=== PATIENT | female | born 1955 | race Caucasian/White ===

== ENCOUNTER → 2024-01-09 09:19 | Outpatient (REF) | payer OTHER, SELFPAY ==
[2024-01-09 11:37] LABS: Urine Albumin Negative (Neg - Trace); Urine Bilirubin Negative (Negative); Urine Character Clear (Clear); Urine Color Yellow; Urine Glucose Negative (Negative); Urine Ketone Negative (Negative); Urine Leukocyte Negative (Negative); Urine Nitrite Negative (Negative); Urine Occult Blood Negative (Negative); Urine Specific Gravity 1.005 (<1.030); Urine Urobilinogen Negative (Neg - 1+)
[2024-01-09 11:50] LABS: ALT (SGPT) 15 U/L (0-35); AST (SGOT) 22 U/L (14-36); Albumin 3.7 g/dl (3.5-5.0); Alkaline Phosphatase 68 U/L (38-126); Blood Urea Nitrogen 11 mg/dl (7-17); Carbon Dioxide 31 mmol/L (22-30); Chloride 100 mmol/L (98-107); Glucose 101 mg/dl (70-99); Sodium 136 mmol/L (135-145); Total Bilirubin 0.9 mg/dl (0.2-1.3); Total Cholesterol 224 mg/dl (50-199); Total Protein 6.4 g/dl (6.3-8.2); Triglyceride 106 mg/dl (10-149); Very Low Density Lipoprotein 21 mg/dl (0-30); eGFR > 60.00
[2024-01-09 12:00] LABS: HDL Cholesterol 118 mg/dl; LDL Cholesterol, Calculated 85 mg/dl
[2024-01-09 12:05] LABS: Vitamin D, 25-OH*** 33.4 ng/mL (30-80)
[2024-01-09 12:09] LABS: Glycohemoglobin (HgbA1c) 6.3 % (4.0-5.6)
[2024-01-09 12:13] LABS: % Basophils 0.7 % (0-2); % Eosinophils 1.1 % (0-6); % Immature Granulocytes 0.5 % (0-0.5); % Lymphocytes 42.8 % (20.5-51.1); % Monocytes 8.1 % (1.7-9.3); % Neutrophils 46.8 % (42.2-75.2); Absolute Eosinophils 0.1 10^3/uL (0-0.7); Absolute Lymphocytes 2.4 10^3/uL (1.2-3.4); Absolute Monocytes 0.5 10^3/uL (0.1-0.6); Absolute Neutrophils 2.6 10^3/uL (1.4-6.5); Hematocrit 36.5 % (37.0-47.0); Mean Corp Hgb Conc. 32.9 g/dL (33.0-37.0); Mean Corpuscular Hgb 31.2 pg (27.0-31.0); Mean Corpuscular Volume 94.8 fL (81.0-99.0); Mean Platelet Volume 10.2 fL (7.4-10.4); Nucleated Red Blood Cells % 0 %; Platelet Count 255 10^3/uL (130-400); Red Blood Cell Count 3.85 10^6/uL (4.20-5.40); Red Cell Dist. Width 14.6 % (11.5-14.5); White Blood Cell Count 5.6 10^3/uL (4.8-10.8)
[2024-01-09 12:18] LABS: TSH 0.65 uIU/ml (0.47-4.68)
== END ==
LOC: HWLAB 09:19
PROVIDERS: ATTENDING PHYSICIAN Internal Medicine Cardiovascular Disease; FAMILY PHYSICIAN Nurse Practitioner Family
DX: I10 Essential (primary) hypertension (principal); R73.09 Other abnormal glucose; Z13.0 Encounter for screening for diseases of the blood and blood-forming organs and certain disorders involving the immune mechanism; E78.00 Pure hypercholesterolemia, unspecified; E55.9 Vitamin D deficiency, unspecified; R31.1 Benign essential microscopic hematuria
CPT/HCPCS: 36415; 80053; 80061; 81003; 82306; 83036; 84443; 85025

== ENCOUNTER → 2024-02-09 14:44 | Outpatient (REF) | payer OTHER, SELFPAY | LOC: HWWDC 14:44 | PROVIDERS: ATTENDING PHYSICIAN Obstetrics & Gynecology Gynecology; FAMILY PHYSICIAN Nurse Practitioner Family | DX: Z12.31 Encounter for screening mammogram for malignant neoplasm of breast (principal) | CPT/HCPCS: 77063; 77067 ==

== ENCOUNTER → 2024-08-07 08:26 | Outpatient (REF) | payer OTHER, SELFPAY ==
[2024-08-07 10:25] LABS: ALT (SGPT) 17 U/L (0-35); AST (SGOT) 26 U/L (14-36); Alkaline Phosphatase 75 U/L (38-126); Blood Urea Nitrogen 10 mg/dl (7-17); Carbon Dioxide 26 mmol/L (22-30); Chloride 105 mmol/L (98-107); Glucose 90 mg/dl (70-99); Potassium 4.3 mmol/L (3.5-5.1); Sodium 142 mmol/L (135-145); Total Bilirubin 0.7 mg/dl (0.2-1.3); Total Protein 6.2 g/dl (6.3-8.2); eGFR > 60.00
[2024-08-07 11:02] LABS: Glycohemoglobin (HgbA1c) 5.7 % (4.0-5.6)
== END ==
LOC: HWLAB 08:26
PROVIDERS: ATTENDING PHYSICIAN Nurse Practitioner Family
DX: R73.09 Other abnormal glucose (principal)
CPT/HCPCS: 36415; 80053; 83036

== ENCOUNTER → 2024-09-13 06:36 | Outpatient (REF) | payer OTHER, SELFPAY | LOC: MRI 3T 06:36 | PROVIDERS: ATTENDING PHYSICIAN Physician Assistant Surgical; FAMILY PHYSICIAN Nurse Practitioner Family | DX: M54.16 Radiculopathy, lumbar region (principal); M54.50 Low back pain, unspecified; M51.369 Other intervertebral disc degeneration, lumbar region without mention of lumbar back pain or lower extremity pain | CPT/HCPCS: 72148 ==

== ENCOUNTER 2025-01-31 13:12 | Emergency (ER) | payer OTHER, SELFPAY ==
[2025-01-31 13:17] VITALS: BP 159/76
--- NOTE | 2025-01-31 13:47 | ED.GENMED ---
History of Present Illness
General
Chief Complaint: Back Pain
Time Seen by Provider: 01/31/25 13:33
History of Present Illness
History of Present Illness:
TIME OF INITIAL ENCOUNTER: 2 PM
HPI: The patient has a history of left-sided sciatica. More recently the pain has been dramatically worsened. She saw Dr. Post with [facility] recently. She was placed on a Medrol Dosepak recently. She is not currently taking any narcotic pain
medication. Numbness and increased pain to the left lower extremity. She reports having an abnormal MRI from this past August. She denies any bowel or bladder incontinence or retention. She has had no fevers.
EXAM:
GENERAL: The patient appears rather uncomfortable
HEENT: Moist oral mucosa
ABDOMEN: Soft with no peritoneal signs, no tenderness
BACK: Positive straight leg raise at the left lower extremity at 30 degrees, she has fairly good strength in an S1 distribution but is weaker in an L5 distribution, excellent L4, decreased active range of motion of the thoracolumbar spine due to pain
NEUROLOGIC: Excellent strength in the upper extremities and no involvement to the right lower extremity, no coordination deficits, as above, see back exam above for neuroexam of the left lower extremity
PSYCHIATRIC: Appropriate mental status, normal insight and judgement
EXTREMITIES: Nontender, no edema, moves all extremities equally
SKIN: No rash, no lesions
NUMBER AND COMPLEXITY OF PROBLEMS ADDRESSED AT THE ENCOUNTER
� Chronic conditions affecting care: Sciatica, high blood pressure, has had SVT
� Acute Exacerbation and/or Progression of Chronic Illness: This is a subacute problem and acutely worsening problem
� Differential Diagnosis includes: Sciatica, no clinical evidence for cauda equina syndrome, nonspecific low back pain, muscle strain
AMOUNT AND/OR COMPLEXITY OF DATA TO BE REVIEWED AND ANALYZED
� I performed an independent evaluation of and my interpretation is:
EKG: Sinus 53, septal Q waves unchanged from 07/02/2023, no significant change from 07/02/2023
CT:
X-rays:
Laboratory Studies:
Other:
� Review of other/old records: I reviewed the MRI report from August 2024 which showed disc bulge at L5-S1 causing impingement upon the L5 nerve root on the left side
� Clinical information was obtained by an independent historian: I spoke to the at bedside
� Prescriptions/Medications Considered but not given:
� Further testing considered but not performed: MRI not indicated as there is no significant decrease in strength and no back pain 'red flags'
RISK OF COMPLICATIONS AND/OR MORBIDITY OR MORTALITY OF PATIENT MANAGEMENT
� Social determinants of health affecting care: Lives at home
� Discussion with other providers: I notified Dr. Miller, covering for [facility] of the patient's rather severe pain. He does recommend using Medrol Dosepak.
� Escalation of care including admission/observation vs risk of discharge considered: We gave IV narcotic and algesia, IV Toradol, and IV steroids.
ANY OTHER UPDATES:
3 PM: On reassessment, the patient does feel improved however she has developed some 'indigestion'. She has a soft nontender abdomen. Will give a dose of Pepcid. I also recommend that she start a PPI while on the Medrol Dosepak. I have also
given her the contact information for the other [facility] orthopedist that Dr. Miller had mentioned.
3:45 PM: EKG was obtained because patient did have some continued indigestion despite Pepcid. She was also given Maalox.
Past History
Past History
ED Past Medical History: Arrthythmia (SVT, Palpitations) and HTN; Negative Asthma
ED Past Surgical History: Appendectomy, Cholecystectomy, Orthopedic (Right shoulder surgery, Right knee surgery, Left Achilles repair, ) and Other (Cataracts)
Social History
Tobacco: Non-smoker
Alcohol: Occasional
Personal:
Living: with family
Employment: Employed
Family History
Family History: Negative Early CAD
Phy Exam
Physical Exam
Physical Exam:
See HPI
Course
Orders/Labs/Results
Orders:
Orders
01/31/25 13:41
Dexamethasone Sod Phosphate [Decadron] 10 mg IV NOW STA
HYDROmorphone [Dilaudid] 0.5 mg IV NOW STA
Ketorolac [Toradol] 15 mg IV NOW STA
01/31/25 14:00
HYDROmorphone [Dilaudid] 0.5 mg .ROUTE .STK-MED ONE
01/31/25 14:10
HYDROmorphone [Dilaudid] 0.5 mg IV NOW STA
01/31/25 14:41
Famotidine [Pepcid] 20 mg IV NOW STA
01/31/25 15:31
Electrocardiogram (*1) Urgent
Reason for Study: Abdominal Pain
EKG- Treatment ONCE
Mag Hydrox/Al Hydrox/Simeth [Maalox] 30 ml PO NOW STA
Vital Signs
Initial and Last Documented VS:
Initial Vital Signs
Temp Pulse Resp BP Pulse Ox
36.9 C 71 18 159/76 100
01/31/25 13:17 01/31/25 13:17 01/31/25 13:17 01/31/25 13:17 01/31/25 13:17
Last Documented Vital Signs
Temp Pulse Resp BP Pulse Ox
36.6 C 54 18 171/61 99
01/31/25 15:22 01/31/25 15:22 01/31/25 15:22 01/31/25 15:22 01/31/25 15:22
*Critical Care Note
Total Time (30-74mins, 75-104mins- exclusive of procedures): Not Applicable
ED Attending Note
-
Portions of this chart may have been created with voice recognition software.� Occasional wrong word or��sound alike� substitutions may have occurred due to the inherent limitations of voice recognition software.
Discharge Plan
Departure
Patient Disposition: Home (Routine Discharge)
Date of Disposition: 01/31/25
Time of Disposition: 14:43
Patient with high blood pressure during this ER visit?: Yes
Discharge Problem:
Sciatica
Prescriptions:
New
hydrocodone-acetaminophen 5-325 mg tablet
1 - 2 tab PO Q6H PRN (Reason: Pain) Qty: 14 0RF
methylprednisolone [Medrol (Ousmane)] 4 mg tablets,dose pack
See Rx Instructions .ROUTE .COMPLEX Qty: 21 0RF
Rx Instructions:
orally per package directions
No Action
furosemide [Lasix] 20 MG tablet
20 mg PO DAILY PRN (Reason: swelling)
metoprolol succinate 25 MG tablet extended release 24 hr
25 mg PO BID
zolpidem 10 mg tablet
10 mg PO HS PRN (Reason: sleep)
Patient Comments:
06/22/2023: last filled 06/14/23, 30 tabs for 30 days from [facility]
cholecalciferol (vitamin D3) [Vitamin D3] 50 mcg (2,000 unit) Tablet
50 mcg PO DAILY
amlodipine 5 mg Tablet
5 mg PO DAILY Qty: 30 0RF
Referrals:
Tricia Clement CRNP [Family Provider] -
Piyush Jack MD [Non-Admitting Privileges] - Follow up in 2-3 days
Activity Restrictions/Additional Instructions:
I spoke to Dr. Miller, on-call for [facility] but not necessarily in the same division as Dr. Post. Dr. Miller did also mention Dr. Piyush Jack as another name and I have given you his contact information, also with [facility]. I am sending a
prescription for another round of a steroid pack, a narcotic, and I also recommend that you take something like omeprazole to help decrease stomach acid production while on the steroid. This could help with indigestion. You could also take
[id number] Pepcid if indigestion persists. I also recommend taking something like MiraLAX to help prevent constipation while on narcotic pain medication. Try to limit the use of narcotics and only take when pain is severe.
Interventions
Interventions:
*Risk Screen - Suicide Last Done: 01/31/25 13:19
*General Assessment Last Done: 01/31/25 13:19
*Neglect/Abuse Screening Last Done: 01/31/25 13:19
*ED- Fall Risk Assessment Last Done: 01/31/25 14:00
*ED COVID-19 Vaccine History Last Done: 01/31/25 13:39
ED-Musculoskeletal Assessment Last Done: 01/31/25 13:41
Discharge Date and Time
Print Language: NEPALI
[2025-01-31 13:53] VITALS: BP 152/76
[2025-01-31] MEDS: TORADOL 15 MG IV (14:09)
[2025-01-31] MEDS: DECADRON 10 MG IV (14:10)
[2025-01-31] MEDS: DILAUDID 0.5 MG IV (14:11)
[2025-01-31] MEDS: PEPCID 20 MG IV (14:50)
[2025-01-31 15:00] VITALS: BP 173/79
[2025-01-31 15:22] VITALS: BP 171/61
[2025-01-31] MEDS: MAALOX 30 ML PO (15:51)
== END 2025-01-31 16:06 | disposition home or self-care (01) ==
LOC: EMR 13:12
PROVIDERS: EMERGENCY PHYSICIAN Emergency Medicine; FAMILY PHYSICIAN Nurse Practitioner Family
DX: M54.32 Sciatica, left side (principal); K30 Functional dyspepsia; I10 Essential (primary) hypertension; Z90.49 Acquired absence of other specified parts of digestive tract
CPT/HCPCS: 96374; 96375; 99284; 93005

== ENCOUNTER → 2025-04-01 09:33 | Outpatient (REF) | payer OTHER, SELFPAY ==
[2025-04-01 12:02] LABS: % Basophils 0.6 % (0-2); % Eosinophils 1.5 % (0-6); % Immature Granulocytes 0.2 % (0-0.5); % Lymphocytes 47.2 % (20.5-51.1); % Monocytes 7.5 % (1.7-9.3); Absolute Eosinophils 0.1 10^3/uL (0-0.7); Absolute Lymphocytes 2.2 10^3/uL (1.2-3.4); Absolute Monocytes 0.4 10^3/uL (0.1-0.6); Hematocrit 35.1 % (37.0-47.0); Hemoglobin 11.5 g/dL (12.0-16.0); Mean Corp Hgb Conc. 32.8 g/dL (33.0-37.0); Mean Corpuscular Hgb 30.8 pg (27.0-31.0); Mean Corpuscular Volume 94.1 fL (81.0-99.0); Mean Platelet Volume 11.2 fL (7.4-10.4); Nucleated Red Blood Cells % 0 %; Platelet Count 206 10^3/uL (130-400); Red Blood Cell Count 3.73 10^6/uL (4.20-5.40); Red Cell Dist. Width 14.1 % (11.5-14.5); White Blood Cell Count 4.6 10^3/uL (4.8-10.8)
[2025-04-01 12:14] LABS: Urine Albumin Negative (Neg - Trace); Urine Bilirubin Negative (Negative); Urine Character Clear (Clear); Urine Color Yellow; Urine Glucose Negative (Negative); Urine Ketone Negative (Negative); Urine Leukocyte 1+ (Negative); Urine Nitrite Negative (Negative); Urine Occult Blood 1+ (Negative); Urine Specific Gravity 1.015 (<1.030); Urine Urobilinogen Negative (Neg - 1+)
[2025-04-01 12:38] LABS: Urine Bacteria Few (Negative); Urine Red Blood Cell 0-2 /HPF (0-2); Urine White Cell 0-2 /HPF (0-5)
[2025-04-01 12:47] LABS: ALT (SGPT) 12 U/L (0-35); AST (SGOT) 19 U/L (14-36); Alkaline Phosphatase 59 U/L (38-126); Blood Urea Nitrogen 9 mg/dl (7-17); Carbon Dioxide 29 mmol/L (22-30); Chloride 107 mmol/L (98-107); Glucose 91 mg/dl (70-99); HDL Cholesterol 99 mg/dl; LDL Cholesterol, Calculated 83 mg/dl; Potassium 4.2 mmol/L (3.5-5.1); Sodium 139 mmol/L (135-145); Total Bilirubin 0.8 mg/dl (0.2-1.3); Total Cholesterol 195 mg/dl (50-199); Total Protein 6.3 g/dl (6.3-8.2); Triglyceride 65 mg/dl (10-149); Very Low Density Lipoprotein 13 mg/dl (0-30); eGFR > 60.00
[2025-04-01 12:53] LABS: TSH 0.45 uIU/ml (0.47-4.68)
[2025-04-02 03:09] LABS: Glycohemoglobin (HgbA1c) 5.6 % (4.0-5.6)
== END ==
LOC: HWLAB 09:33
PROVIDERS: ATTENDING PHYSICIAN Nurse Practitioner Family
DX: Z13.0 Encounter for screening for diseases of the blood and blood-forming organs and certain disorders involving the immune mechanism (principal); R73.03 Prediabetes; E78.00 Pure hypercholesterolemia, unspecified; Z13.29 Encounter for screening for other suspected endocrine disorder; Z13.89 Encounter for screening for other disorder; E55.9 Vitamin D deficiency, unspecified
CPT/HCPCS: 36415; 80053; 80061; 81003; 81015; 82306; 83036; 84443; 85025

== ENCOUNTER → 2025-06-19 08:38 | Outpatient (REF) | payer OTHER, SELFPAY | LOC: HWWDC 08:38 | PROVIDERS: ATTENDING PHYSICIAN Obstetrics & Gynecology Gynecology; FAMILY PHYSICIAN Nurse Practitioner Family | DX: Z12.31 Encounter for screening mammogram for malignant neoplasm of breast (principal) | CPT/HCPCS: 77063; 77067 ==

== ENCOUNTER → 2025-09-14 09:28 | Outpatient (REF) | payer OTHER, SELFPAY | LOC: MRI 3T 09:28 | PROVIDERS: ATTENDING PHYSICIAN Orthopaedic Surgery Orthopaedic Surgery of the Spine; FAMILY PHYSICIAN Nurse Practitioner Family | DX: M48.062 Spinal stenosis, lumbar region with neurogenic claudication (principal) | CPT/HCPCS: 72148 ==